=== PATIENT | female | born 1990 | race Caucasian/White ===

== ENCOUNTER 2023-02-24 13:38 | Emergency (ER) | payer BC ==
[2023-02-24] MEDS ORDERED: Sodium Chloride 0.9% 10 ML Syringe FLUSH PRN (14:01)
[2023-02-24 14:20] LABS: BASOPHILS ABSOLUTE AUTO 0.01 K/uL (0.00-0.20); BASOPHILS PERCENT AUTO 0.1 % (0.0-2.0); EOSINOPHILS ABSOLUTE AUTO 0.09 K/uL (0.00-0.50); EOSINOPHILS PERCENT AUTO 1.3 % (0.0-5.0); HEMATOCRIT 34.1 % (34.0-46.0); HEMOGLOBIN 11.3 g/dL (11.7-15.5); LYMPHOCYTES ABSOLUTE AUTO 1.08 K/uL (0.50-3.50); LYMPHOCYTES PERCENT AUTO 15.2 % (10.0-50.0); MEAN CORPUSCULAR HEMOGLOBIN 31.2 pg (28.2-33.3); MEAN CORPUSCULAR HGB CONC 33.1 g/dL (31.7-36.0); MEAN CORPUSCULAR VOLUME 94.2 fL (84.0-98.0); MONOCYTES ABSOLUTE AUTO 0.45 K/uL (0.00-1.00); MONOCYTES PERCENT AUTO 6.3 % (2.0-14.0); NEUTROPHILS ABSOLUTE AUTO 5.47 K/uL (1.40-7.00); NEUTROPHILS PERCENT AUTO 77.1 % (45.0-80.0); PLATELET COUNT,PLT 363 K/uL (150-350); RED BLOOD CELL COUNT 3.62 M/uL (3.77-5.09); RED CELL DISTRIBUTION WIDTH 12.1 % (11.2-14.1); WHITE BLOOD CELL COUNT,WBC 7.1 K/uL (4.0-10.2)
[2023-02-24] MEDS: Sodium Chloride 0.9% 1,000 ML IV ONE (14:20)
[2023-02-24] MEDS: oxyCODONE 5 MG Tab PO ONE (14:41)
[2023-02-24 14:49] LABS: ALBUMIN 3.4 g/dL (3.4-5.0); ANION GAP 9.4 meq/L (7-15); BILIRUBIN TOTAL 0.3 mg/dL (0.2-1.0); C-REACTIVE PROTEIN 4.4 mg/dL (0.05-0.30); CALCIUM 9.3 mg/dL (8.5-10.1); CARBON DIOXIDE,CO2 27.6 mmol/L (21.0-32.0); CREATININE 0.82 mg/dL (0.51-1.17); EST CRCL DRUG DOSING (CG) 97.52 mL/min; MAGNESIUM 2.1 mg/dL (1.8-2.4); POTASSIUM,K 3.9 mmol/L (3.5-5.1); PROTEIN TOTAL,TP 7.2 g/dL (6.4-8.2)
[2023-02-24 14:58] LABS: CORONAVIRUS COVID-19 NAA NEGATIVE (NEGATIVE); INFLUENZA A NAA NEGATIVE (NEGATIVE); INFLUENZA B NAA NEGATIVE (NEGATIVE); RESPIRATORY SYNCYTIAL VIR NAA NEGATIVE (NEGATIVE)
[2023-02-24 15:47] LABS: BILIRUBIN,URINE NEGATIVE (NEGATIVE); COLOR,URINE YELLOW; GLUCOSE,URINE NEGATIVE (NEGATIVE); KETONES,URINE 15 mg/dL (NEGATIVE); NITRITE,URINE NEGATIVE (NEGATIVE); OCCULT BLOOD,URINE LARGE (NEGATIVE); PROTEIN,URINE NEGATIVE (NEGATIVE); UROBILINOGEN,URINE 0.2 E.U./dL (0.2-1.0)
[2023-02-24 15:57] LABS: APPEARANCE,URINE SLIGHTLY CLOUDY; LEUKOCYTE ESTERASE,URINE NEGATIVE (NEGATIVE)
[2023-02-24 15:58] LABS: BACTERIA,URINE RARE /HPF (NONE TO FEW); EPITHELIAL CELLS,URINE FEW /LPF; WBC,URINE 0-5 /HPF
[2023-02-24] MEDS ORDERED: Orphenadrine 60 MG/2 ML Inj IV ONE (16:38)
[2023-02-24 18:48] VITALS: BP 135/79; PULSE 80
== END 2023-02-24 17:11 | disposition home or self-care (01) ==
LOC: LL.ED 13:38
DX: R51.9 Headache, unspecified (principal); Z48.811 Encounter for surgical aftercare following surgery on the nervous system; Z20.822 Contact with and (suspected) exposure to COVID-19
CPT/HCPCS: 0241U; 36415; 71046; 80053; 81001; 83605; 83735; 85025; 85652; 86140; 96360; 96361; 99284; 99284-25; A9270-GY; J7030